=== PATIENT | male | born 1965 | race Caucasian/White ===

== ENCOUNTER → 2021-07-21 | Outpatient (CLI) | payer OTHER, SELFPAY ==
[2021-07-21 22:57] LABS: Absolute Lymphocyte Count 2.51 X10^3/uL (0.83-4.51); Absolute Neutrophil Count 6.8 X10^3/uL (2.0-7.7); Basophil# 0.04 X10^3/uL; Basophil% 0.4 % (0-1); Eosinophil# 0.08 X10^3/uL; Eosinophils% 0.8 % (0-5); Hematocrit 44.2 % (40-54); Hemoglobin 14.9 g/dL (13.0-16.5); Lymphocyte # 2.51 X10^3/ul (0.83-4.51); Lymphocyte % 25.2 % (19-41); Mean Corp Hgb Conc 33.7 g/dL (32-36); Mean Corpuscular Hgb 31.9 pg (27.0-32.0); Mean Corpuscular Volume 94.6 fL (80-94); Mean Platelet Vol. 10.2 fl (6.2-12.0); Monocyte# 0.52 X10^3/uL; Monocyte% 5.2 % (0-10); NRBC Flagged by Analyzer 0 % (0-5); Neutrophil # 6.79 X10^3/uL (2.7-7.7); Neutrophil % 68.2 % (47-70); Platelet Count 286 K/mm3 (150-450); RBC Distribution Width CV 12.7 % (11.6-14.6); Red Blood Count 4.67 M/mm3 (4.6-6.2)
[2021-07-21 23:07] LABS: D-Dimer Quantitative (DVT/PE) <= 0.27 FEU/ug/m (0.27-0.49)
[2021-07-21 23:18] LABS: ALB/GLOB Ratio 1.2 RATIO (0.9-2.4); AST(SGOT) 17 U/L (15-37); Alanine Aminotransfer ALT/SGPT 27 U/L (16-61); Albumin, Serum 3.8 g/dL (3.2-5.0); Alkaline Phosphatase 71 U/L (45-117); Anion Gap 6 (5-15); BUN 11 mg/dL (7-18); BUN/Creat Ratio 13.4 RATIO (10-20); CRP, High Sensitivity Cardiac 2.15 mg/L; Calcium,Total 8.9 mg/dL (8.5-10.1); Chloride 105 mmol/L (98-107); Cholesterol 238 mg/dL (200); Creatinine, Serum 0.82 mg/dL (0.70-1.30); EST Glomerular Filtration Rate 103 mL/min (>60); Est Glom Filt Rate - Afr Amer 125 mL/min (>60); Globulin 3.2 g/dL (2.2-4.2); Glucose 81 mg/dL (74-106); High Density Lipoprotein 52 mg/dL; Potassium 4.2 mmol/L (3.5-5.1); Sodium Level 139 mmol/L (136-145); Thyroid Stim Hormone (TSH) 1.55 uIU/mL (0.358-3.74); Triglycerides 69 mg/dL; Troponin-I HS 5 pg/mL (3.0-78.0); Very Low Density Lipoprotein 14 mg/dL (5-40)
== END | disposition home or self-care (01) ==
PROVIDERS: PCP Nurse Practitioner; Visit Provider Nurse Practitioner
DX: I10 Essential (primary) hypertension (principal); R06.02 Shortness of breath; I25.9 Chronic ischemic heart disease, unspecified
CPT/HCPCS: 80053; 80061; 84443; 84484; 85025; 85379; 86141